=== PATIENT | female | born 1980 | race Two or more races ===

== ENCOUNTER 2021-12-02 09:15 | Outpatient (CLI) | payer OTHER | END 2021-12-02 09:25 | disposition home or self-care (01) | LOC: RX STUDY 09:15 | PROVIDERS: ATTEND Obstetrics & Gynecology Reproductive Endocrinology | DX: D25.9 Leiomyoma of uterus, unspecified (principal); N94.6 Dysmenorrhea, unspecified ==

== ENCOUNTER 2025-05-09 09:00 | Outpatient (CLI) | payer OTHER | END 2025-05-09 09:05 | disposition home or self-care (01) | LOC: TOM 09:00 | PROVIDERS: ATTEND Obstetrics & Gynecology | DX: N94.9 Unspecified condition associated with female genital organs and menstrual cycle (principal); N93.8 Other specified abnormal uterine and vaginal bleeding ==